=== PATIENT | female | born 1945 | race Caucasian/White ===

== ENCOUNTER 2022-08-23 14:33 | Observation (INO) ==
--- NOTE | 2022-08-23 14:59 | Emergency Department Note ---
HPI General Chief complaint: Altered Mental Status Stated complaint: Altered Loc Time Seen by Provider: 08/23/22 14:34 Source: EMS Mode of arrival: EMS Limitations: altered mental status History of Present Illness HPI Narrative: Narrative: Patient presents by EMS with complaint of confusion and weakness. 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 They requested to the home by a caregiver who was initially evaluated the patient. They found her to be confused and having difficulty walking. They requested EMS evaluation. EMS reports that the patient is unstable on her feet although she is able to bear weight and ambulate with assistance and a walker. There was no evidence of injury. They were not able to find any medications readily in the home. Caregiver did not have much to offer in the way of history as they were just meeting the patient for the first time. Patient was evaluated emergency permit yesterday for similar complaint. She does not have any family in town. There is another resident of the home who is apparently renting from her. That individual was admitted to the hospital last night for renal injury, elevated INR, GI bleed and hypokalemia. The patient was found to have urinary retention but no other medical condition warranting admission. She was discharged home. Caregiver who came to the home today found her confusion and unsteadiness on her feet alarming. Patient herself endorses being confused and unstable. She also reports that she has a Magallanes catheter in but is unsure how to manage it. Patient does endorse that she has a prescription for lorazepam and is wondering if maybe that is contributing to her confusion. No other history is available at this time. Related Data Home Medications Medication Instructions Recorded Confirmed atorvastatin 20 mg tablet 20 mg PO HS 04/11/16 05/06/17 clopidogrel 75 mg tablet 75 mg PO DAILY 04/11/16 05/06/17 gabapentin 300 mg capsule 0 mg PO BID 04/11/16 05/06/17 lorazepam 1 mg tablet 1 mg PO HSP PRN Insomnia 04/11/16 05/06/17 paroxetine HCl 30 mg tablet (Paxil) 30 mg PO DAILY 04/11/16 05/06/17 amlodipine 10 mg tablet 10 mg PO DAILY 04/19/16 05/06/17 potassium chloride 10 mEq 10 meq PO BID 04/19/16 05/06/17 tablet,extended release Previous Rx's Medication Instructions Recorded ondansetron 4 mg disintegrating 4 mg SL Q4-6HP PRN Nausea ##10 05/06/17 tablet nitrofurantoin 100 mg PO BID #10 caps 04/22/19 monohydrate/macrocrystals 100 mg capsule ciprofloxacin HCl 500 mg tablet 500 mg PO BID #14 tabs 10/26/19 Allergies Allergy/AdvReac Type Severity Reaction Status Date / Time Iodinated Contrast Media Allergy Hives Verified 08/23/22 14:37 [Iodinated Contrast Media - IV Dye] Sulfa (Sulfonamide Allergy Hives Verified 08/23/22 14:37 Antibiotics) Review of Systems ROS ROS Narrative: Narrative: Pertinent positives and negatives as noted in HPI. All other systems reviewed and negative. [facility] Narrative Patient History Narrative: Narrative: Medical/Surgical/Family History All Active Problems (Updated 08/23/22 @ 20:35 by Conchis Granados PA-C) Hypokalemia (Acute) UTI (urinary tract infection) (Acute) Acute diarrhea (Acute) Volume depletion (Acute) Nausea (Acute) Cirrhosis (Acute) Skin abscess (Acute) Adverse drug effect (Acute) Constipation (Acute) Paresthesia (Acute) Urinary retention (Acute) Encephalopathy (Acute) Polypharmacy (Acute) Weakness (Acute) Medical History Acute diarrhea Hypokalemia UTI (urinary tract infection) Volume depletion Social History Smoking Status: Current some day smoker Exam Narrative Narrative: Narrative: Vital signs noted General: mild distress. Skin: Warm. Dry. No rash. Normal color. Eyes: PERRL. EOMI. Mouth: Membranes dry. Neck: Good ROM. No meningeal signs. Supple. Cardiovascular: Regular rate and rhythm. No murmur. Respiratory: No respiratory distress. Breath sounds equal. No wheezing/rales/rhonchi. Gastrointestinal: Abdomen soft. No tenderness. No distention. Normal bowel sounds. No rebound tenderness or guarding. Back: Normal inspection. No CVA tenderness. No midline tenderness. Extremities: No tenderness. No swelling. No erythema. No edema. Good peripheral pulses x 4 Neurological: No focal neurological deficits observed. CN 2-12 intact. Alert. Oriented to person General Limitations: altered mental status Course Course Course Narrative: The following orders are placed and reviewed by myself: Evaluation from ER visit yesterday was reviewed and is noted to be quite extensive. No remarkable lab abnormalities were noted including CBC, CHEM panel, UA. CT brain and abdomen pelvis were also obtained. Abdomen pelvis did note urinary distention which prompted Magallanes catheter placement. Repeat CHEM panel today shows hypokalemia the patient is medicated with potassium. EKG shows sinus rhythm rate 87. QRS complexes are narrow and at regular intervals. Occasional PVC. No ST elevation or depression. No outward signs of head trauma so repeat CT is not obtained at this time. Case management does review the patient information and is familiar with her from her visit yesterday. In review of the patient's medication list as well as her roommate who had been admitted to ICU there are multiple prescriptions that are sedating. Patient herself has prescription for milligram lorazepam and her roommate has 2 mg lorazepam. On review of her visit from yesterday she did have urine positive for opiates. Pharmacy list that is current from the patient's pharmacy does not include narcotics, however it does have 1 mg lorazepam. Review of the patient's significant other med list does show [facility] 7.5 as well as 2 mg Ativan. I was able to speak to the patient's daughter who lives in [place] who advises that the patient has seemed to decline in the conversations over the last few weeks. She has noted confusion and inability to answer simple questions. She has been working to try and get a caregiver into the home which is who was there today. There has been other individuals who have checked on the patient in the last several days and on 1 occasion noted there were tampons in the bathroom. When questioned the patient about the tampons she advised that she was using them rectally to absorb her stool from diarrhea. They removed from the home and the daughter does not feel that if a foreign body was not identified on the CT yesterday a repeat study would need to be done. She does not believe that she obtained other tampons and may have inserted them. I did asked the daughter about the patient's pill-rolling with the left hand and inquired about a prior diagnosis of Parkinson's, which the daughter reports she does not have. Daughter has concerns about safety for discharge given the patient's confusion. She also recalls that the patient has been found in her own stool on a couple of occasions within the last week by people have stopped to check on her. After full case management review they believe that the patient may qualify for mcc placement but they are unable to do it at this time. Patient discussed with hospital service for observational admission regarding altered level of consciousness likely related to polypharmacy, hypokalemia and weakness. Patient excepted by hospital service for observational admit. Vital Signs Vital signs: Vital Signs Temperature 97.6 F 08/23/22 14:34 Pulse Rate 94 H 08/23/22 14:34 Respiratory Rate 16 08/23/22 14:34 Blood Pressure 157/78 08/23/22 14:34 Pulse Oximetry (%) 100 08/23/22 14:34 Oxygen Delivery Method 08/23/22 14:34 Temperature 97.6 F 08/23/22 14:34 Pulse Rate 85 08/23/22 19:51 Respiratory Rate 16 08/23/22 14:34 Blood Pressure 130/68 08/23/22 19:31 Pulse Oximetry (%) 96 08/23/22 19:51 Oxygen Delivery Method 08/23/22 14:34 MDM MDM Narrative Medical decision making narrative: Narrative: Lab Data Labs: Lab Results 08/23/22 Range/Units 16:23 POC Hct 37.0 (36-48) POC Sodium 140 (133-145) POC Potassium 2.8 L* (3.3-5.1) POC Chloride 102 (96-108) POC Total CO2 25.0 (22-30) POC BUN 7 (6-20) POC Creatinine 0.6 (0.6-1.2) POC Glucose 142 H (70-105) POC WB Ioniz Calcium 1.09 L (1.16-1.32) Discharge Plan Patient/Caregiver Discharge Instructions Pt seen by ORTHOTICS PROSTHETICS ASSISTANT/PA only: Yes Clinical Impression: Hypokalemia, Encephalopathy, Polypharmacy, Weakness Patient Disposition: Xfer As Outpt/Obs ([facility]) Follow up with: Lina Davis MD [Primary Care Provider] - Prescriptions: No Action atorvastatin 20 MG Tablet 20 mg PO HS clopidogrel 75 MG Tablet 75 mg PO DAILY paroxetine HCl [Paxil] 30 MG Tablet 30 mg PO DAILY gabapentin 300 MG Capsule 0 mg PO BID lorazepam 1 MG Tablet 1 mg PO HSP PRN (Reason: Insomnia) potassium chloride 10 MEQ Tablet 10 meq PO BID amlodipine 10 MG Tablet 10 mg PO DAILY ondansetron 4 MG Tablet 4 mg SL Q4-6HP PRN (Reason: Nausea) Qty: 10 0RF nitrofurantoin monohyd/m-cryst 100 MG capsule 100 mg PO BID Qty: 10 0RF ciprofloxacin HCl 500 MG tablet 500 mg PO BID Qty: 14 0RF
[2022-08-23] MEDS ORDERED: NALOXONE HCL 0.4 MG/ML VIAL IV PRN (16:11)
[2022-08-23 16:28] LABS: POC Calcium, Ionized 1.09 (1.16-1.32); POC Creatinine 0.6 (0.6-1.2); POC Potassium 2.8 (3.3-5.1)
[2022-08-23] MEDS ORDERED: POTASSIUM CHLORIDE 20 MEQ PACKET PO ONE (19:59)
--- NOTE | 2022-08-23 20:27 | Internal Med History&Physical ---
HPI History of Present Illness Patient information: Note initiated : 08/23/22 at 8:27 pm Service Date, if different from initiated Date: [] Patient: Suzan Guillaume a 77 y/o F admitted on for Altered Loc. Chief Complaint: [AMS] Chief complaint: AMS History of present illness: Ms. Guillaume is a 77 year old F with a past medical history significant for diabetes mellitus type 2, hypertension, hyperlipidemia and neuropathy who p resents to the hospital with altered mental status. EMS arrived to her home at the request of the caregiver. They found her to be disoriented with gait instability. There was no evidence of trauma. It was reported that the home appeared information writer. The patient was not disheveled. The patient lives alone at this time. She has no family in town. The patient was brought to the hospital for further management and evaluation of her altered mental status, failure to thrive, and polypharmacy. On arrival, the patient was hemodynamically stable and afebrile. Her lab work was unrevealing except for low potassium of 2.8. Her urine toxicology screen was positive for opioids although she is not prescribed opioids. The hospitalist service was asked admit the patient. Review of Systems ROS unobtainable: due to mental status All systems: reviewed and no additional remarkable complaints except as stated Constitutional Constitutional: Present as per HPI EENT Eyes: Present as per HPI; Absent blurry vision Cardiovascular Cardiovascular: Present as per HPI; Absent chest pain, dyspnea, dyspnea on exertion, leg edema or palpatations Respiratory Respiratory: Present as per HPI; Absent cough, dyspnea, dyspnea on exertion, wheezing or stridor Gastrointestinal Gastrointestinal: Present as per HPI; Absent abdominal pain, diarrhea, dysphagia, hematemesis, melena, nausea or vomiting Musculoskeletal Musculoskeletal: Present as per HPI; Absent joint swelling, limited range of motion, muscle cramps, muscle weakness or myalgias Integumentary Integumentary: Present as per HPI; Absent erythema, new lesions, rash or wounds Neurological Neurological: Present as per HPI; Absent abnormal gait, behavioral changes, focal weakness, headache(s), loss of vision, numbness, sensory deficit or syncope Endocrine Endocrine: Absent change in body appearance, fatigue or heat intolerance Hematologic/Lymphatic Hematologic/Lymphatic: Present as per HPI PFSH PFSH All Active Problems (Updated 08/23/22 @ 20:35 by Conchis Granados PA-C) Hypokalemia (Acute) UTI (urinary tract infection) (Acute) Acute diarrhea (Acute) Volume depletion (Acute) Nausea (Acute) Cirrhosis (Acute) Skin abscess (Acute) Adverse drug effect (Acute) Constipation (Acute) Paresthesia (Acute) Urinary retention (Acute) Encephalopathy (Acute) Polypharmacy (Acute) Weakness (Acute) Medical History Acute diarrhea Hypokalemia UTI (urinary tract infection) Volume depletion Social History smoking status: Former smoker MEDS/ALLERGIES Home Medications and Allergies Home Medications Medication Instructions Recorded Confirmed Type atorvastatin 20 mg tablet 20 mg PO HS 04/11/16 08/23/22 History clopidogrel 75 mg tablet 75 mg PO DAILY 04/11/16 08/23/22 History gabapentin 300 mg capsule 300 mg PO QAM 04/11/16 08/23/22 History lorazepam 1 mg tablet 1.5 mg PO DAILY PRN Anxiety 04/11/16 08/24/22 History amlodipine 5 mg tablet 1 tab PO QDAY 08/23/22 08/23/22 History gabapentin 300 mg capsule 2 cap PO QHS 08/23/22 08/23/22 History glipizide 5 mg tablet, extended 1 tab PO QDAY 08/23/22 08/23/22 History release 24 hr metoprolol tartrate 25 mg tablet 0.5 tab PO BID 08/23/22 08/23/22 History olanzapine 5 mg tablet 1 tab PO HS 08/23/22 08/23/22 History Allergies Allergy/AdvReac Type Severity Reaction Status Date / Time Iodinated Contrast Media Allergy Hives Verified 08/23/22 14:37 [Iodinated Contrast Media - IV Dye] Sulfa (Sulfonamide Allergy Hives Verified 08/23/22 14:37 Antibiotics) EXAM Constitutional Vitals: Temp Pulse Resp BP Pulse Ox O2 Del Method 97.6 F 85 16 140/60 98 08/23/22 14:34 08/23/22 20:08 08/23/22 14:34 08/23/22 20:08 08/23/22 20:08 08/23/22 14:34 General appearance: average body habitus Head Head exam: Present atraumatic, normal inspection and normocephalic Eye Eye exam: Present EOMI, normal appearance and PERRL; Absent conjunctival injection ENT ENT exam: Present mucous membranes dry and normal exam Neck Neck exam: Present full ROM; Absent lymphadenopathy Respiratory Respiratory exam: Present normal respiratory exam and CTAB; Absent decreased breath sounds, respiratory distress or wheezes Cardiovascular Cardiovascular exam: Present normal rate and rhythm and RRR; Absent JVD GI/Abdominal GI/Abdominal exam: Present normal bowel sounds and soft; Absent diminished bowel sounds, distended, guarding, mass, rebound or tenderness Neurological Exam Neurological exam: Present alert Psychiatric Psychiatric exam: Present normal affect and normal mood Skin Skin exam: Present intact and warm; Absent erythema, pallor, petechiae or rash DATA Data Completed and Pending Labs: Labs from last 24 hours 08/23/22 16:23 POC Hct 37.0 POC Sodium 140 POC Potassium 2.8 L* POC Chloride 102 POC Total CO2 25.0 POC BUN 7 POC Creatinine 0.6 POC Glucose 142 H POC WB Ioniz Calcium 1.09 L A/P Assessment and plan (1) Encephalopathy: Status: Acute (2) Polypharmacy: Status: Acute (3) Weakness: Status: Acute Narrative A/P Narrative: The patient was hospitalized for prescription drug abuse. The patient was taking her roommates opioids without his knowledge. She is also on gabapentin, lorazepam, and olanzapine. We have been holding her sedatives. PT/OT/case management will assess the patient as she may require placement. The patient's urine culture was negative and she does not have a UTI. Medication reconciliation is pending. Time Spent With Patient Time: Total time spent is greater than 50% in coordination of care (as documented) at patient's floor/unit and/or counseling patient: Initial: Total time with patient: 55 - 74 minutes
[2022-08-23] MEDS ORDERED: ONDANSETRON 4 MG/2 ML VIAL IV ONE (20:51)
[2022-08-23] MEDS ORDERED: ACETAMINOPHEN 325 MG TABLET PO PRN (21:41)
[2022-08-23] MEDS ORDERED: SENNOSIDES 1 TABLET PO SCH (21:41)
[2022-08-23] MEDS: LACTATED RINGERS 1,000 ML IV SCH (22:56)
[2022-08-23] MEDS: DOCUSATE SODIUM 100 MG CAPSULE PO SCH (22:56)
[2022-08-23] MEDS: 0.9 % SODIUM CHLORIDE 10 ML SYRINGE IV SCH (22:57)
[2022-08-23] MEDS: ONDANSETRON 4 MG/2 ML VIAL IV PRN (23:27)
[2022-08-24 06:51] LABS: Blood Urea Nitrogen 8 mg/dL (8-23); Calcium 8.7 mg/dL (8.6-10.4); Carbon Dioxide 24 mmol/L (22-30); Chloride 101 mmol/L (96-108); Glomerular Filtration Rate 87; Glucose 170 mg/dL (70-105)
[2022-08-24] MEDS: ONDANSETRON 4 MG/2 ML VIAL IV PRN (08:21)
[2022-08-24] MEDS: 0.9 % SODIUM CHLORIDE 10 ML SYRINGE IV SCH (08:36)
[2022-08-24] MEDS ORDERED: ENOXAPARIN 40 MG/0.4 ML SYRINGE SQ SCH (09:00)
[2022-08-24] MEDS ORDERED: CLOPIDOGREL 75 MG TABLET PO SCH (09:00)
--- NOTE | 2022-08-24 09:22 | Internal Med Progress Note ---
SUBJECTIVE Subjective Patient information: Note initiated : 08/24/22 at 9:19 am Service Date, if different from initiated Date: [] Patient: Suzan Guillaume a 77 y/o F admitted on 08/23/22 for Altered Loc. Chief Complaint: [AMS] Principal diagnosis: Polypharmacy, failure to thrive Interval history: The patient was resting comfortably in bed. She is alert and oriented x3 today. She admits to taking her roommates opiates without his knowledge. Constitutional Vitals: Vital Signs Temp Pulse Resp BP Pulse Ox O2 Del Method 97.6 F 70 14 150/61 97 08/24/22 07:43 08/24/22 07:43 08/24/22 07:43 08/24/22 07:43 08/24/22 07:43 08/24/22 07:43 Period Temp Pulse Resp BP Sys/Motta Pulse Ox O2 Del Method O2 Flow Rate Last 24 Hr 97.3 F-97.8 F 70-94 14-18 100-157/52-78 95-100 Room Air-Room Air Intake and Output 08/23/22 08/24/22 08/24/22 19:59 03:59 11:59 Intake Total 200 Output Total 300 Balance -100 Weight 64.41 kg 58.196 kg Intake & Output: Intake & Output 08/23/22 08/24/22 08/24/22 19:59 03:59 11:59 Intake Total 200 Output Total 300 Balance -100 Weight 64.41 kg 58.196 kg Intake: Oral 200 Output: Urine Catheter Amount 300 Other: Urine Appearance Cloudy Uretheral (Magallanes) Cloudy Urine Color Light Piedad Uretheral (Magallanes) Light Piedad Urine Odor Normal Head Head exam: Present atraumatic and normal inspection Eye Eye exam: Present normal appearance ENT ENT exam: Present mucous membranes moist, normal exam and normal external ear exam Neck Neck exam: Present normal inspection Respiratory Respiratory exam: Present normal respiratory exam Cardiovascular Cardiovascular exam: Present normal rate and rhythm GI/Abdominal GI/Abdominal exam: Present normal bowel sounds Back Exam Back exam: Present normal inspection Neurological Exam Neurological exam: Present alert and oriented X3 Skin Skin exam: Present intact and warm OBJ DATA Labs CBC & Chem 7: 08/24/22 05:26 Labs: Abnormal Lab Results 08/24/22 08/23/22 05:26 16:23 POC Potassium 2.8 L* Glucose 170 H POC Glucose 142 H POC WB Ioniz Calcium 1.09 L Meds: Medications Acetaminophen (Acetaminophen 325 Mg Tablet) 650 mg PO Q6HP PRN; Protocol PRN Reason: Per Pain Protocol/Fever > 101 Last Admin: 08/23/22 23:28 Dose: 650 mg Atorvastatin Calcium (Atorvastatin 20 Mg Tablet) 20 mg PO HS [facility] Clopidogrel Bisulfate (Clopidogrel 75 Mg Tablet) 75 mg PO DAILY [facility] Docusate Sodium (Docusate Sodium 100 Mg Capsule) 100 mg PO BID [facility] Last Admin: 08/23/22 22:56 Dose: Not Given Enoxaparin Sodium (Enoxaparin 40 Mg/0.4 Ml Syringe) 40 mg SQ DAILY [facility] Lactated Ringer's (Lactated Ringers) 1,000 mls @ 75 mls/hr IV .[id number] [facility] Last Admin: 08/23/22 22:56 Dose: 75 mls/hr Ondansetron HCl (Ondansetron 4 Mg/2 Ml Vial) 4 mg IV Q6HP PRN PRN Reason: Nausea And Vomiting Last Admin: 08/24/22 08:21 Dose: 4 mg Senna (Sennosides 1 Tablet) 2 tab PO HS [facility] Last Admin: 08/23/22 22:56 Dose: Not Given Sodium Chloride (0.9 % Sodium Chloride 10 Ml Syringe) 10 ml IV Q8 [facility] Last Admin: 08/24/22 08:36 Dose: Not Given A/P Assessment and plan (1) Encephalopathy: Status: Acute (2) Polypharmacy: Status: Acute (3) Weakness: Status: Acute Narrative A/P Narrative: The patient was hospitalized for prescription drug abuse. The patient was taking her roommates opioids without his knowledge. She is also on gabapentin, lorazepam, and olanzapine. We have been holding her sedatives. PT/OT/case management will assess the patient as she may require placement. The patient's urine culture was negative and she does not have a UTI. Medication reconciliation is pending. 08/24: The patient was resting comfortably in bed. Her gabapentin, lorazepam, and Zyprexa are being held. Social work, case management and PT will assess the patient. Time Spent With Patient Time: Total time spent is greater than 50% in coordination of care (as documented) at patient's floor/unit and/or counseling patient: Subsequent: Total time with patient: 25 - 34 minutes QUALITY Stroke Symptom Onset Unknown: No VTE Deep Vein Thrombosis/Pulmonary Embolism Present on Admission: No
--- NOTE | 2022-08-24 09:54 | EKG ---
[facility] Test Date: 2022-08-23 Pat Name: Suzan Guillaume Department: ED Room: Gender: Female It Associate: : 1945 Requested By: Conchis Granados Order Number: [id number] Reading MD: Nathan Alva Measurements Intervals [place] Rate: 87 P: 32 MA: 186 QRS: 3 QRSD: 88 T: -89 QT: 390 QTc: 470 Interpretive Statements Sinus rhythm Ventricular premature complex Nonspecific T abnormalities, diffuse leads Electronically Signed On 08-24-2022 9:54:14 PST by Nathan Alva /store/[email or web address]/[id number]
[2022-08-24] MEDS: DOCUSATE SODIUM 100 MG CAPSULE PO SCH (10:23)
[2022-08-24] MEDS: LACTATED RINGERS 1,000 ML IV SCH (11:08)
--- NOTE | 2022-08-24 11:37 | Discharge Summary ---
Discharge Provider Provider IMPORTANT FOLLOW-UP INFORMATION FOR PCP: 1. Address polypharmacy Patient information: Note initiated : 08/24/22 at 11:36 am Service Date, if different from initiated Date: [] Patient: Suzan Guillaume 77 y/o F admitted on 08/23/22 for Altered Loc. Chief Complaint: [AMS, weakness ] Date of admission: 08/23/22 21:41 Discharge date: 08/24/22 Primary care physician: Lina Davis Consults: 08/23/22 Consult to Physician [CONS] Stat Comment: Consulting Provider: Camilla Merino Reason For Exam: Physician to Consult COURSE Hospital Course Hospital course: Assessment and plan (1) Encephalopathy: Status:Acute (2) Polypharmacy: Status:Acute (3) Weakness: Status:Acute Narrative A/P Narrative: The patient was hospitalized for prescription drug abuse. The patient was taking her roommates opioids without his knowledge. She is also on gabapentin, lorazepam, and olanzapine. We have been holding her sedatives. PT/OT/case management will assess the patient as she may require placement. The patient's urine culture was negative and she does not have a UTI. Medication reconciliation is pending. 08/24: The patient was resting comfortably in bed. Her gabapentin, lorazepam, and Zyprexa are being held. Social work, case management and PT will assess the patient. The patient will need placement and was discharged to SNF F/u with PCP re: polypharmacy. Mentation has improved. Discharge diagnosis: Prescription drug abuse, failure to thrive Time Spent with Patient Time attestation: Total time spent providing and/or coordinating discharge services: Time spent: Greater than 30 minutes EXAM Constitutional Vitals: Temp Pulse Resp BP Pulse Ox O2 Del Method 97.6 F 70 14 150/61 97 08/24/22 07:43 08/24/22 07:43 08/24/22 07:43 08/24/22 07:43 08/24/22 08:00 08/24/22 08:00 General appearance: average body habitus Head Head exam: Present atraumatic, normal inspection and normocephalic Eye Eye exam: Present EOMI, normal appearance and PERRL; Absent conjunctival injection ENT ENT exam: Present normal exam; Absent mucous membranes dry Neck Neck exam: Present full ROM; Absent lymphadenopathy Respiratory Respiratory exam: Present normal respiratory exam and CTAB; Absent decreased breath sounds, respiratory distress or wheezes Cardiovascular Cardiovascular exam: Present normal rate and rhythm and RRR; Absent JVD GI/Abdominal GI/Abdominal exam: Present normal bowel sounds and soft; Absent diminished bowel sounds, distended, guarding, mass, rebound or tenderness Neurological Exam Neurological exam: Present alert, CN II-XII intact and oriented X3 Psychiatric Psychiatric exam: Present normal affect and normal mood Skin Skin exam: Present intact and warm; Absent erythema, pallor, petechiae or rash Discharge Data Data Completed and Pending Labs on day of discharge: Labs from last 24 hours 08/24/22 08/23/22 05:26 16:23 POC Hct 37.0 POC Sodium 140 Sodium 138 POC Potassium 2.8 L* Potassium 3.4 POC Chloride 102 Chloride 101 Carbon Dioxide 24 POC Total CO2 25.0 Anion Gap 13.0 POC BUN 7 BUN 8 Creatinine 0.6 POC Creatinine 0.6 GFR Calculation 87 Glucose 170 H POC Glucose 142 H Calcium 8.7 POC WB Ioniz Calcium 1.09 L Discharge Plan Patient/Caregiver Discharge Instructions Activity: increase activity as tolerated Prescriptions: Continued atorvastatin 20 MG tablet 20 mg PO HS clopidogrel 75 MG tablet 75 mg PO DAILY gabapentin 300 MG capsule 300 mg PO QAM Rx Instructions: 1 in am, 2 at hs olanzapine 5 mg tablet 1 tab PO HS glipizide 5 mg tablet extended release 24hr 1 tab PO QDAY amlodipine 5 mg tablet 1 tab PO QDAY metoprolol tartrate 25 mg tablet 0.5 tab PO BID Discontinued lorazepam 1 MG tablet 1.5 mg PO DAILY PRN (Reason: Anxiety) Rx Instructions: Take one and one-half tablets by mouth once daily as needed for anxiety. gabapentin 300 mg capsule 2 cap PO QHS Follow Up Plan Follow up with: Lina Davis MD [Primary Care Provider] - Patient Disposition: Xfer SNF Rehab Potential: Good I certify that the patient requires SNF services: Yes Overall status at discharge: patient is progressing back to baseline Discharge Orders: Discharge Order (Routine); Ordered 08/24/22 Ordered By: Camilla FLEMING VTE Deep Vein Thrombosis/Pulmonary Embolism Present on Admission: No
[2022-08-24] MEDS ORDERED: ATORVASTATIN 20 MG TABLET PO SCH (21:00)
[2022-08-25] MEDS ORDERED: FLU VACC QS2022-23(6MOS UP)/PF 60 MCG/0.5 ML SYRINGE IM ONE (09:30)
== END 2022-08-24 14:35 ==
LOC: ICU 14:33 → ED 14:33 → ICU 21:48
PROVIDERS: ADMIT Student in an Organized Health Care Education/Training Program; ATTEND Student in an Organized Health Care Education/Training Program